=== PATIENT | female | born 1950 | race Caucasian/White ===

== ENCOUNTER 2016-12-11 10:43 | Emergency (ER) | payer MEDICARE, OTHER ==
--- NOTE | 2016-12-14 16:42 | ER ---
ADMIT: 12/11/2016 RM/LOC: ER [facility] MR#: [id number] [address] [id number] DELISA NORWOOD [address] [place] [address] Emergency Room Report SEX: F AGE: 66 : 1950 DATE: 12/11/2016 ADDENDUM: A 66-year-old white female coming in with actually right upper quadrant pain. Everybody in her family have their gallbladder out. She has a positive Louis sign. She had tacos last night and is worse this morning. At this time, she ate this morning, so we cannot get the ultrasound. We were set her up for an outpatient ultrasound and gave her Toradol 60 IM x1 and gave her a Zofran since she said she is little nauseated. We put her on clear liquids to start today and then she gets advanced her diet to a no-fat diet as indicated. I gave her [place] 5/325, #20. She cannot tolerate codeine, but there is no history that she could not tolerate [place]; plastics and synthetic. Dr. Brooks is on, he needs to see her this week after the ultrasound which we will get scheduled for tomorrow. CONDITION ON DISCHARGE: Good. Jaskaran Engel MD/ brady JOB #: [id number] CC: Jaskaran Engel MD, Attending Physician Eren Brooks MD, Family Physician
== END 2016-12-11 11:50 | disposition home or self-care (01) ==
LOC: ER 10:43
DX: R10.11 Right upper quadrant pain (principal); I10 Essential (primary) hypertension; E11.9 Type 2 diabetes mellitus without complications; Z88.0 Allergy status to penicillin; Z88.6 Allergy status to analgesic agent; Z90.710 Acquired absence of both cervix and uterus; Z98.890 Other specified postprocedural states

== ENCOUNTER → 2016-12-12 | Outpatient (CLI) | payer MEDICARE, OTHER | END | disposition home or self-care (01) | LOC: RAD.S 10:47 | DX: R10.11 Right upper quadrant pain (principal); K80.80 Other cholelithiasis without obstruction; K82.8 Other specified diseases of gallbladder ==